=== PATIENT | male | born 1990 | race Caucasian/White ===

== ENCOUNTER 2016-12-18 08:18 | Observation (INO) | payer OTHER ==
[2016-12-18 08:36] VITALS: TEMP 97.8; BMI 33.0
[2016-12-18 10:07] LABS: BASO # 0.05 K/mm3 (0.0-2.0); BASO % 0.5 % (0.0-3.0); EOS # 0.4 (0.0-0.7); EOS % 4.3 % (1.5-5.0); GRAN # 5.67 (1.4-6.5); HEMOGLOBIN 14.9 gm/dL (14.0-18.0); LYMPH % 30.6 % (22.0-35.0); MEAN CELL VOLUME 89.4 fL (80.0-105.0); MEAN CORPUSCULAR HEMOGLOBIN 31.1 pg (25.0-35.0); MEAN CORPUSCULAR HGB CONC 34.8 g/dl (31.0-37.0); MEAN PLATELET VOLUME 10.9 fl (7.0-11.0); MONO # 0.8 (0.1-0.6); MONO % 7.6 % (1.0-6.0); PLATELET COUNT 255 10^3/uL (120.0-450.0); RBC 4.79 10^6/uL (3.5-6.1); RED CELL DISTRIBUTION WIDTH 12.6 % (11.5-14.5)
[2016-12-18 10:12] LABS: ALB/GLOB RATIO 1.3 (1.1-1.8); ALBUMIN 4.7 g/dL (3.0-4.8); ALT/SGPT 66 U/L (7-56); AST/SGOT 41 U/L (15-59); BLOOD UREA NITROGEN 11 mg/dL (7-21); CALCIUM 9.6 mg/dL (8.4-10.5); GFR AFRICAN-AMERICAN > 60; GFR NON-AFRICAN AMERICAN > 60; MAGNESIUM 1.9 mg/dL (1.7-2.2)
--- NOTE | 2016-12-18 11:23 | ED PDOC ---
Arrival/HPI - General Chief Complaint: Dizziness/Lightheaded Time Seen by Provider: 12/18/16 08:22 Historian: Patient - History of Present Illness Narrative History of Present Illness (Text): 12/18/16 11:26 A 26 year old male brought in by EMS after episode of seizure. Patient reports he was in the shower in the morning when he felt lightheaded, fell and then lost consciousness. Just prior to LOC, he called out to his brother. Patient's family reports patient was shaking for 1-2 minutes and unconscious for 3-4 minutes. Also notes patient was normal after episode, no obvious postictal period. Patient reports he had a seizure about ten years ago in [place], where he saw a Neurologist. He took medications for a year, but does not currently take medications for seizure. Denies any cough, dysuria, pain or any other complaints at this time. PMD: Dr. Irizarry Symptom Onset: Sudden Symptom Course: Resolved Activities at Onset: Rest Context: Home Past Medical History - Provider Review Nursing Documentation Reviewed: Yes - Infectious Disease Hx of Infectious Diseases: None - Psychiatric Hx Substance Use: No Family/Social History - Physician Review Nursing Documentation Reviewed: Yes Family/Social History: No Known Family HX Smoking Status: Never Smoked Hx Alcohol Use: No Hx Substance Use: No Allergies/Home Meds Allergies/Adverse Reactions: Allergies No Known Allergies Allergy (Verified 12/18/16 08:39) Review of Systems - Physician Review All systems were reviewed & negative as marked: Yes - Review of Systems Respiratory: absent: Cough Genitourinary Male: absent: Dysuria Musculoskeletal: absent: Back Pain, Neck Pain Neurological: Seizure Physical Exam - Physical Exam Narrative Physical Exam (Text): Constitutional: No acute distress. Head: Normocephalic. Atraumatic. Eyes: PERRL. ENT: Moist mucous membranes. R lateral tongue abrasion with dried blood. Neck: Supple. No midline tenderness. Cardiovascular: Tachycardic. Chest: No tenderness. Respiratory: Clear to auscultation bilaterally. GI: Soft. Nontender. Nondistended. Back: No CVA tenderness. No midline tenderness. Musculoskeletal: No tenderness or swelling of extremities. Full ROM x4 Skin: No rash. Neurologic: Alert, no focal deficit. Negative kernig and brudzinski signs. Vital Signs Reviewed: Yes Vital Signs Temp Pulse Resp BP Pulse Ox 12/18/16 12:56 97.8 F 90 16 117/69 98 12/18/16 10:00 76 18 110/77 99 12/18/16 08:30 97.8 F 112 H 16 123/61 97 Temperature: Afebrile Blood Pressure: Normal Pulse: Tachycardic Respiratory Rate: Normal Appearance: Positive for: Well-Appearing, Non-Toxic, Comfortable Pain Distress: None Mental Status: Positive for: Alert and Oriented X 3 Finger Stick Blood Glucose: 124 Medical Decision Making ED Course and Treatment: 12/18/16 9:25 Impression: A 26 year old male with episode of seizure. History of seizure 10 years ago. Plan: -- EKG -- CT head -- chest xray -- labs -- Urinalysis -- Reassess and disposition - Lab Interpretations Lab Results: 12/18/16 08:57 12/18/16 08:57 Lab Results 12/18/16 08:57: WBC 10.0, RBC 4.79, Hgb 14.9, Hct 42.8, MCV 89.4, MCH 31.1, MCHC 34.8, RDW 12.6, Plt Count 255, MPV 10.9, Gran % 57.0, Lymph % (Auto) 30.6, Weston % (Auto) 7.6 H, Eos % (Auto) 4.3, Baso % (Auto) 0.5, Gran # 5.67, Lymph # 3.0, Weston # 0.8 H, Eos # 0.4, Baso # 0.05 12/18/16 08:57: Sodium 140, Potassium 3.7, Chloride 104, Carbon Dioxide 22, Anion Gap 18, BUN 11, Creatinine 0.8, Est GFR ( Amer) > 60, Est GFR (Non- Af Amer) > 60, Random Glucose 110, Calcium 9.6, Phosphorus 2.1 L, Magnesium 1.9 , Total Bilirubin 0.8, AST 41, ALT 66 H, Alkaline Phosphatase 52, Total Protein 8.4 H, Albumin 4.7, Globulin 3.7, Albumin/Globulin Ratio 1.3 12/18/16 08:44: POC Glucose (mg/dL) 124 H I have reviewed the lab results: Yes - RAD Interpretation Radiology Orders: 12/18/16 09:42 CHEST TWO VIEWS (PA/LAT) [RAD] Stat - EKG Interpretation Interpreted by ED Physician: Yes Type: 12 lead EKG - Medication Orders Current Medication Orders: Discontinued Medications Levetiracetam (Keppra) 500 mg PO STAT STA Stop: 12/18/16 12:47 Last Admin: 12/18/16 13:01 Dose: 500 mg ED OBSERVATION Discharge: Yes Date of observation admission: 12/18/16 Time of observation admission: 09:42 - Observation admission statement Patient is being placed in observation because:: episode of seizure prior to arrival - Goals of Observation Goals of observation are:: reevaluate patient symptoms - Progress Note Progress Note: CT head Creator : Son Espinoza MD 12/18/16 11:33 IMPRESSION: No acute findings 12/18/16 11:42 Patient is in no acute distress. 12/18/16 12:17 chest xray: Creator : Son Espinoza MD IMPRESSION: No active disease. 1248pm Labs unremarkable. Patient feels well. Will start on Keppra, f/u Neurology, return to ER for fever, stiff neck, vomiting, or any other problem. - Scribe Statement The provider has reviewed the documentation as recorded by the Ceci Jackson Provider Scribe Attestation: All medical record entries made by the Betzyibbarbra were at my direction and personally dictated by me. I have reviewed the chart and agree that the record accurately reflects my personal performance of the history, physical exam, medical decision making, and the department course for this patient. I have also personally directed, reviewed, and agree with the discharge instructions and disposition. Disposition/Present on Arrival - Present on Arrival Any Indicators Present on Arrival: No History of DVT/PE: No History of Uncontrolled Diabetes: No Urinary Catheter: No History of Decub. Ulcer: No History Surgical Site Infection Following: None - Disposition Have Diagnosis and Disposition been Completed?: Yes Diagnosis: Seizure Disposition: HOME/ ROUTINE Disposition Time: 09:42 Patient Plan: Discharge Condition: STABLE
--- NOTE | 2016-12-18 11:31 | CT ---
PROCEDURE: CT HEAD WITHOUT CONTRAST. HISTORY: seizure COMPARISON: None available. TECHNIQUE: Axial computed tomography images were obtained through the head/brain without intravenous contrast. Radiation dose: Total exam DLP = 1559 mGy-cm. This CT exam was performed using one or more of the following dose reduction techniques: Automated exposure control, adjustment of the mA and/or kV according to patient size, and/or use of iterative reconstruction technique. FINDINGS: HEMORRHAGE: No intracranial hemorrhage. BRAIN: No mass effect or edema. No atrophy or chronic microvascular ischemic changes. VENTRICLES: Unremarkable. No hydrocephalus. CALVARIUM: Unremarkable. PARANASAL SINUSES: Unremarkable as visualized. No significant inflammatory changes. MASTOID AIR CELLS: Unremarkable as visualized. No inflammatory changes. OTHER FINDINGS: None. IMPRESSION: No acute findings
[2016-12-18 12:03] LABS: PH,URINE 6.5 (4.7-8.0); URINE BILIRUBIN NEGATIVE (NEGATIVE); URINE BLOOD NEGATIVE (NEGATIVE); URINE GLUCOSE (UA) NEGATIVE (NEGATIVE); URINE LEUKOCYTE ESTERASE NEGATIVE Leu/uL (NEGATIVE); URINE NITRATE NEGATIVE (NEGATIVE); URINE PROTEIN NEGATIVE mg/dL (<30 mg/dL); URINE UROBILINOGEN 0.2 E.U./dL (<1 E.U./dL)
[2016-12-18 12:06] LABS: URINE APPEARANCE CLEAR (CLEAR); URINE COLOR YELLOW (YELLOW)
--- NOTE | 2016-12-18 12:14 | RAD ---
HISTORY: seizure COMPARISON: No prior. TECHNIQUE: Chest PA and lateral FINDINGS: LUNGS: No active pulmonary disease. PLEURA: No significant pleural effusion identified. No pneumothorax apparent. CARDIOVASCULAR: Normal. OSSEOUS STRUCTURES: No significant abnormalities. VISUALIZED UPPER ABDOMEN: Normal. OTHER FINDINGS: None. IMPRESSION: No active disease.
[2016-12-18 12:56] VITALS: BP 117/69; PULSE 90; RESP 16; O2SAT 98
--- NOTE | 2016-12-18 17:38 | CARD ---
APPROVED REPORT EKG Measurement Heart [id number] <Conclusion> Sinus tachycardia Otherwise normal ECG
== END 2016-12-18 12:48 | disposition home or self-care (01) ==
LOC: ED 08:18 → EROBSV 09:42
PROVIDERS: ADMIT Student in an Organized Health Care Education/Training Program; ATTEND Student in an Organized Health Care Education/Training Program
DX: R56.9 Unspecified convulsions (principal)
CPT/HCPCS: 70450; 71020; 80053; 81003; 82948; 83735; 84100; 85025; 93005; 99285; G0378

== ENCOUNTER 2017-04-08 10:12 | Emergency (ER) | payer OTHER ==
[2017-04-08 10:12] VITALS: BMI 33.0
[2017-04-08 10:37] VITALS: RESP 18
--- NOTE | 2017-04-08 11:05 | ED PDOC ---
Arrival/HPI - General Chief Complaint: Allergic Reaction Time Seen by Provider: 04/08/17 10:57 Historian: Patient - History of Present Illness Narrative History of Present Illness (Text): 04/08/17 11:03 26yr old male presents today with rash to right side of face/forehead. pt states rash started yesterday in the morning and has slightly worsened. denies pain. denies fever/chills. denies blurred vision. denies headache. denies sick contacts. pt states he has been taking benadryl with improvement. hx of chicken pox in the past. no other complaints. Time/Duration: Other (1 day) Symptom Course: Worsening Quality: Aching Severity Level: 2 Past Medical History - Provider Review Nursing Documentation Reviewed: Yes - Travel History Have you recently traveled outside [place] w/in the past 3 mons?: No - Infectious Disease Hx of Infectious Diseases: None - Tetanus Immunization Tetanus Immunization: Unknown - Psychiatric Hx Substance Use: No Family/Social History - Physician Review Nursing Documentation Reviewed: Yes Family/Social History: Unknown Family HX Smoking Status: Never Smoked Hx Alcohol Use: No Hx Substance Use: No Allergies/Home Meds Allergies/Adverse Reactions: Allergies No Known Allergies Allergy (Verified 12/18/16 08:39) Review of Systems - Review of Systems Constitutional: absent: Fatigue, Fevers Eyes: absent: Vision Changes, Photophobia, Eye Pain ENT: absent: Sore Throat, Sinus Congestion Respiratory: absent: SOB, Cough Cardiovascular: absent: Chest Pain Gastrointestinal: absent: Abdominal Pain, Nausea, Vomiting Genitourinary Male: absent: Dysuria Musculoskeletal: absent: Arthralgias Skin: Rash, Pruritis Psychiatric: absent: Anxiety, Depression Physical Exam Vital Signs Reviewed: Yes Vital Signs Temp Pulse Resp BP Pulse Ox 04/08/17 10:26 99.5 F 96 H 18 138/83 98 Temperature: Afebrile Blood Pressure: Normal Pulse: Regular Respiratory Rate: Normal Appearance: Positive for: Well-Appearing, Non-Toxic, Comfortable Pain Distress: None Mental Status: Positive for: Alert and Oriented X 3 - Systems Exam Head: Present: Normocephalic, Swelling, Other (multiple erythematous plaques with few vesicles noted to right side for forehead, scalp, and upper eyelid - does not cross midline, ). No: Tenderness, Ecchymosis Pupils: Present: PERRL Extroacular Muscles: Present: EOMI Conjunctiva: Present: Injected (minimal right lateral conjunctival injection, no dendrites noted, no fluroscein uptake noted. no corneal abrasion or ulceration, perrla.) Ears: Present: Normal, NORMAL TM Mouth: Present: Moist Mucous Membranes Nose (External): Present: Atraumatic Nose (Internal): Present: Normal Inspection Neck: Present: Normal Range of Motion Respiratory/Chest: Present: Clear to Auscultation Cardiovascular: Present: Regular Rate and Rhythm Medical Decision Making ED Course and Treatment: 04/08/17 11:09 26yr old male with rash to right side of face since yesterday. stable vitals no distress. visual acuity WNL. pt with erythematous plaques with vesicles along right side of forehead, upper eyelid, right side of scalp that does not cross midline - concerning for shingles. there is slight conjunctival injection laterally without any evidence of dendrites on govea lamp/fluorescein evaluation. acylovir 800mg PO given case discussed in depth with dr. Crain (eye doctor); pt to come to the office tomorrow morning at 9am. i discussed shingles with patient in depth; stressed importance of Immediate f/ u with eye doctor tomorrow at 9am in the office. advised patient of risk of vision loss if failure to follow up with eye doctor. advised immediate return if symptoms worsen,persist or if new symptoms develop. Patient verbalized understanding of discharge instructions and need for immediate followup. all aspects of this case were discussed the attending of record. impression; shingles acyclovir; 800mg 5 times daily x 7 days Follow up with the eye doctor TOMORROW at 9am in the office. Follow up with the primary care physician within the next 2 days Return immediately if symptoms worsen,persist or if new symptoms develop. - Medication Orders Current Medication Orders: Acyclovir (Zovirax) 800 mg PO STAT STA PRN Reason: Protocol Stop: 04/08/17 10:58 Disposition/Present on Arrival - Present on Arrival Any Indicators Present on Arrival: No History of DVT/PE: No History of Uncontrolled Diabetes: No Urinary Catheter: No History of Decub. Ulcer: No History Surgical Site Infection Following: None - Disposition Have Diagnosis and Disposition been Completed?: Yes Diagnosis: Shingles Disposition: HOME/ ROUTINE Disposition Time: 11:38 Patient Plan: Discharge Condition: GOOD Discharge Instructions (ExitCare): Shingles (ED) Additional Instructions: acyclovir; 800mg 5 times daily x 7 days Follow up with the eye doctor TOMORROW at 9am in the office. Follow up with the primary care physician within the next 2 days Return immediately if symptoms worsen,persist or if new symptoms develop. Prescriptions: Acyclovir [Zovirax] 800 mg PO 5XD #35 tab Referrals: Ok Crain MD [Staff Provider] - Follow up with primary [facility] [Outside] - Follow up with primary [facility] [Outside] - Follow up with primary Forms: [facility] (Bel[place]ian), WORK NOTE
[2017-04-08 11:09] VITALS: BP 135/79; PULSE 86; TEMP 98.9; O2SAT 99
== END 2017-04-08 11:42 | disposition home or self-care (01) ==
LOC: ED 10:12
DX: B02.9 Zoster without complications (principal)